=== PATIENT | male | born 1970 | race Caucasian/White ===

== ENCOUNTER 2016-12-10 00:38 | Emergency (ER) | payer OTHER ==
[~2016-12-10] VITALS: Ht 218.4 cm; Wt 165.0 kg
[2016-12-10] MEDS ORDERED: KETOROLAC 60MG/2ML VIAL IM ONE (01:30)
[2016-12-10] MEDS ORDERED: CYCLOBENZAPRINE 10MG TABLET PO ONE (04:00)
[2016-12-10 04:28] VITALS: BP 121/73
== END 2016-12-10 04:31 | disposition home or self-care (01) ==
LOC: ER 01:17
DX: M54.5 Low back pain (principal); M25.531 Pain in right wrist
CPT/HCPCS: 72100; 73110; 96372; 99284; J1885